=== PATIENT | female | born 1955 | race Caucasian/White ===

== ENCOUNTER 2017-02-14 07:13 | Day surgery (SDC) | payer OTHER ==
[2017-02-14] MEDS ORDERED: Lactated Ringers 1,000 ML IV SCH (08:15)
[2017-02-14] MEDS ORDERED: Lidocaine 2% 100 MG/5 ML Syringe IVPUSH ONE (08:45)
[2017-02-14] MEDS ORDERED: Propofol 200 MG/20 ML SDV IV ONE (08:45)
[2017-02-14] MEDS ORDERED: Midazolam 1 MG/ML 2 ML SDV IV ONE (08:45)
[2017-02-14] MEDS ORDERED: Simethicone Drops 40 MG/0.6 ML 30 ML Bottle ONE (09:04)
--- NOTE | 2017-02-14 09:18 | PCM.OPNOTE ---
- General Post-Op/Procedure Note Date of Surgery/Procedure: 02/14/17 Operative Procedure(s): egd with bx. c scope Findings: gastritis sigmoid diverticulosis int hemorrhoids Pre Op Diagnosis: gerd. hx of colon polyp Post-Op Diagnosis: gastritis. sigmoid diverticulosis. int hemorrhoids Anesthesia Technique: [facility] [place] Surgeon: Kevin Jung Anesthesia Provider: Esther Preciado Pathology: stomach and distal esophagus. Complications: None Condition: Good Free Text/Narrative:: see dictation
[2017-02-14 11:16] VITALS: BP 131/77
--- NOTE | 2017-02-14 11:34 | OR ---
DATE OF OPERATION: 02/14/2017 SURGEON: Kevin Jung MD PROCEDURES PERFORMED: Esophagogastroduodenoscopy with cold forceps biopsy and colonoscopy. PREOPERATIVE DIAGNOSES: History of worsening gastroesophageal reflux disease symptoms and personal history of colon polyps. POSTOPERATIVE DIAGNOSES: Gastritis, sigmoid diverticulosis, and internal hemorrhoids. INDICATIONS FOR PROCEDURE: This is a 61-year-old white female who has a known history of colon polyps. Due for a 5 year followup colonoscopy. In addition, she notes some issues with worsening GERD like symptoms and an EGD felt to be indicated at the same time. She was offered and accepted same. DESCRIPTION OF OPERATION: After an excellent IV sedation was administered, the bite block was inserted. The flexible endoscope was passed without difficulty down the patient's esophagus into her stomach. The stomach was insufflated. The scope was passed through the pylorus to the second portion of the duodenum and slowly withdrawn. The following findings were noted: Duodenum was unremarkable. Stomach diffuse gastritis, biopsies were taken. GE junction measured about 35 cm, which appears to be appropriate for woman of her height. The distal esophagus was essentially unremarkable, what I did take esophageal biopsies due to her complaint of reflux like symptoms. The stomach was deflated, scope was removed. Our attention was then turned to the colon. Digital rectal exam was performed. No marked abnormality was noted. Flexible colonoscope was inserted and advanced to the cecum. The prep was okay. We had to irrigate some areas, but we did get an adequate exam of her colonic mucosa. The following findings were noted: Ascending colon, unremarkable. Transverse colon, unremarkable. Descending colon, unremarkable. Sigmoid, mild diverticulosis. Rectum and anus, retroflexion of the scope, there was some evidence of internal hemorrhoids. Otherwise, unremarkable. The colon was deflated, scope was removed. The patient tolerated the procedure well, and was taken to recovery room in good condition. /[id number] /MODL
== END 2017-02-14 10:30 | disposition home or self-care (01) ==
LOC: FB.SDS 07:13
PROVIDERS: ATTEND Surgery
DX: Z12.11 Encounter for screening for malignant neoplasm of colon (principal); K31.9 Disease of stomach and duodenum, unspecified; K29.50 Unspecified chronic gastritis without bleeding; K20.9 Esophagitis, unspecified; K57.30 Diverticulosis of large intestine without perforation or abscess without bleeding; Z79.82 Long term (current) use of aspirin; Z79.84 Long term (current) use of oral hypoglycemic drugs; Z79.899 Other long term (current) drug therapy; I25.10 Atherosclerotic heart disease of native coronary artery without angina pectoris; I10 Essential (primary) hypertension; E78.5 Hyperlipidemia, unspecified; F41.9 Anxiety disorder, unspecified; E66.9 Obesity, unspecified; G47.33 Obstructive sleep apnea (adult) (pediatric); E11.9 Type 2 diabetes mellitus without complications; Z95.5 Presence of coronary angioplasty implant and graft; K21.9 Gastro-esophageal reflux disease without esophagitis; Z90.710 Acquired absence of both cervix and uterus; Z98.890 Other specified postprocedural states; Z87.891 Personal history of nicotine dependence
CPT/HCPCS: 43239; 45378; 82962; 88305; 88313; 88342; A9270; J2250; J2704; J7120

== ENCOUNTER 2022-02-21 06:24 | Day surgery (SDC) | payer MEDICARE, BC ==
[~2022-02-21 06:24] MED LIST: Lactated Ringers 1,000 ML IV SCH; Sodium Chloride 0.9% 10 ML Syringe FLUSH PRN
[2022-02-21] MEDS ORDERED: Lidocaine 2% 100 MG/5 ML Syringe IVPUSH ONE (06:25)
[2022-02-21] MEDS ORDERED: Propofol 200 MG/20 ML SDV IV ONE (06:25)
[2022-02-21] MEDS ORDERED: Midazolam 1 MG/ML 2 ML SDV IV ONE (06:25)
[2022-02-21 09:06] VITALS: BP 151/66; PULSE 58
== END 2022-02-21 09:30 | disposition home or self-care (01) ==
LOC: FB.SDS 06:24
PROVIDERS: ATTEND Surgery
DX: K29.50 Unspecified chronic gastritis without bleeding (principal); K31.89 Other diseases of stomach and duodenum; K21.9 Gastro-esophageal reflux disease without esophagitis; F41.9 Anxiety disorder, unspecified; E11.9 Type 2 diabetes mellitus without complications; E66.9 Obesity, unspecified; I25.10 Atherosclerotic heart disease of native coronary artery without angina pectoris; G47.33 Obstructive sleep apnea (adult) (pediatric); F17.210 Nicotine dependence, cigarettes, uncomplicated; Z79.82 Long term (current) use of aspirin; Z79.899 Other long term (current) drug therapy; Z98.890 Other specified postprocedural states; Z68.41 Body mass index [BMI] 40.0-44.9, adult
CPT/HCPCS: 00731-QZ; 88305; 88342; J2250; J2704; J7120